=== PATIENT | female | born 1995 | race Caucasian/White ===

== ENCOUNTER 2022-03-30 11:15 | Outpatient (RCR) | payer MEDICAID, SELFPAY ==
[2022-03-23 10:35] VITALS: BP 100/61; PULSE 74; RESP 16; TEMP 36.4; BMI 25.0
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
[2022-03-30 11:54] VITALS: BP 128/73; PULSE 75; TEMP 36.2; BMI 25.0
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
== END 2022-04-12 23:59 | disposition home or self-care (01) ==
LOC: WC 11:15
PROVIDERS: PCP Family Medicine; Visit Provider Internal Medicine
DX: L89.323 Pressure ulcer of left buttock, stage 3 (principal); G82.50 Quadriplegia, unspecified; Z93.0 Tracheostomy status
CPT/HCPCS: 11042; 99203; G0463

== ENCOUNTER 2022-05-04 11:00 | Outpatient (RCR) | payer MEDICAID, SELFPAY ==
[2022-04-13 00:39] VITALS: BP 128/73; PULSE 75; RESP 16; TEMP 36.2; BMI 25.0
[2022-04-13 11:31] VITALS: BP 99/64; PULSE 79; RESP 18; TEMP 36.1; BMI 25.0
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
[2022-04-27 11:44] VITALS: BP 113/69; PULSE 115; RESP 18; BMI 25.0
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
--- NOTE | 2022-04-28 11:26 | WC ---
Unable to find home health agency to provide mcc that takes [employer] [employer]. Called [employer] and spoke to help desk representative for assistance. Transferred to [employer] managed care nurse Yulisa Farmer RN case manager. Yulisa's direct number is [phone]. Message left to return call to assist in finding a home health agency under patients insurance plan. Reference number for this call is #[id number]. Message left for patient's grandma Gayle to update on home health status. Grandnd is currently providing wound care but is in need of assistance.
--- NOTE | 2022-04-28 16:02 | WC ---
Received a message from Yulisa Farmer legal manager with [employer]. She provided 4 home health agencies that are in network. Unfortunately none of those agencies were able to provide services due to staffing issues or don't serve [facility]. Spoke with [facility]. They do take patient's insurance and service [facility]. They aren't able to start home care services until Sunday05/02/22. Spoke with Dr. Garland concerning vac change. Stated ok for home health to start on and patient's family can leave wound vac in place until home health starts on Sunday. If vac should loose seal, family is to remove vac and pac left buttock ulcer with Fibracol, cover with foam dressing, change daily until vac is placed back on Sunday. Spoke with Suraj South patient's . Informed of Home health start date and wound care instructions. Voiced understanding.
[2022-05-04 11:26] VITALS: BP 134/88; PULSE 81; RESP 18; TEMP 36.3; BMI 25.0
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
== END 2022-05-13 23:59 | disposition home or self-care (01) ==
LOC: WC 11:00
PROVIDERS: PCP Family Medicine; Visit Provider Internal Medicine
DX: L89.323 Pressure ulcer of left buttock, stage 3 (principal); G82.50 Quadriplegia, unspecified; Z93.0 Tracheostomy status; L89.311 Pressure ulcer of right buttock, stage 1
CPT/HCPCS: 97605; 11042; 87070; 87075; 87077; 87186; 87205

== ENCOUNTER 2024-12-11 11:00 | Outpatient (RCR) | payer MEDICARE, MEDICAID, SELFPAY ==
[2024-11-27 10:39] VITALS: BP 83/59; PULSE 121; RESP 16; TEMP 36.7; BMI 18.1
--- NOTE | 2024-11-27 13:01 | PCM.WC.HP ---
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 dietary intake, currently at a BMI of 18.1 and significant muscle loss. She states that she takes Premier life protein which has 30 g of protein in it. Increase dietary intake also discussed again. For now, Dakin's wet-to-dry to all areas and cover with superabsorbent dressing. Change daily to twice daily as needed. Continue offloading and repositioning. Has a low-loss air mattress and Roho cushion. Their questions were answered, and they were advised to let us know if they had any further questions or concerns. Follow-up in 1 week or sooner if needed. This note was generated with [employer] dictation software. It may contain incorrect words, spelling, and punctuation that were not noted in checking the note before signing.
--- NOTE | 2024-11-27 13:57 | WC ---
spoke with Phoebe from [facility] (p: [phone]) regard pt new supply orders. Phoebe will be ordering supplies for pt - will fax copy of orders to Phoebe (f: [phone]). Verbal order of dressings was given to Phoebe as well. pt was called and informed of this information.
--- NOTE | 2024-12-01 09:33 | WC ---
PHOTO 11/27/24 [facility]
--- NOTE | 2024-12-01 09:40 | WC ---
PHOTO 11/27/24 LEFT ISCHIUM
--- NOTE | 2024-12-01 09:42 | WC ---
PHOTO 11/27/24 RIGHT ISCHIUM
--- NOTE | 2024-12-01 09:44 | WC ---
[facility]
--- NOTE | 2024-12-01 09:46 | WC ---
PHOTO 11/27/24 RIGHT SCAPULA
[2024-12-04 11:22] VITALS: BP 100/62; PULSE 108; RESP 18; TEMP 36.2; BMI 18.1
--- NOTE | 2024-12-04 17:42 | PN.PCM_ITS ---
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 CODE(S): L89.154 - Pressure ulcer of sacral region, stage 4 (3) Decubitus ulcer of right upper back, stage 3: CODE(S): L89.113 - Pressure ulcer of right upper back, stage 3 (4) Decubitus ulcer of left upper back, stage 3: CODE(S): L89.123 - Pressure ulcer of left upper back, stage 3 (5) Quadriplegia, post-traumatic: CODE(S): G82.50 - Quadriplegia, unspecified; S14.109S - Unspecified injury at unspecified level of cervical spinal cord, sequela (6) Low body mass index (BMI): (7) Stage III pressure ulcer of left buttock: CODE(S): L89.323 - Pressure ulcer of left buttock, stage 3 (8) Stage IV pressure ulcer of right buttock: CODE(S): L89.314 - Pressure ulcer of right buttock, stage 4 PLAN: Plan Debridement done as documented above, procedure was well-tolerated. Some worsening noted to the shoulder area. More exposed bone noted on the right buttock/ischium and sacrum. Overall, no significant drainage or foul smell ap preciated. Concerns with dressing supplies as discussed above. Cultures reviewed and significant/multiple organisms grown. Will start on Augmentin and clindamycin based on sensitivity. Recommend taking clindamycin with probiotics. Now has her supplies and can consistently apply dressings as recommended. Hopefully with these, there is some improvement next week. Yet to get labs and imaging but plans to today. Has significant risk factors for delayed wound healing and worsening including chronicity, debility, poor nutritional status and plegia/pressure. For now, continue Dakin's to all areas of ulcerations daily to twice daily depending on soilage/drainage. Advised to pay particular attention to the upper back/shoulder area due to recurrent pressure. Pillow support to this area discussed. Concerns about air mattress, they were also advised to reach out to their supply company to address possible malfunction. Optimize protein intake and continued offloading discussed. We had discussed hyperbaric oxygen therapy last week which is something that she is considering. Follow-up in a week or sooner if needed. Call with any concerns. This note was generated with [employer] software. It may contain incorrect words, spelling, and punctuation that were not noted in checking the note before signing.
--- NOTE | 2024-12-08 16:00 | RAD_ITS ---
PROCEDURE: PELVIS 1 OR 2 VIEWS 12/08/2024 REASON FOR EXAM: WOUND TECHNIQUE: PELVIS 1 OR 2 VIEWS COMPARISON: No FINDINGS: Suprapubic catheter. Intact pelvic ring. However, there is lytic/erosive destruction of each ischial tuberosity, possibly secondary to chronic osteomyelitis. Correlate for ischial decubitus ulcerations. Large stool, possible constipation. RAD/Pelvis 1 or 2 Views IMPRESSION: Bilateral lytic/erosive changes in each ischial tuberosity, possibly secondary to longstanding osteomyelitis, secondary to decubitus ulcerations. Advise correlation. Reading Location: [place] [id number]
[2024-12-09 12:35] LABS: Hematocrit 28.8 % (37-47); Hemoglobin 8.5 g/dL (12.0-15.0); Immature Granulocytes Count 0.050 X10^3/uL (0.0-0.0); Mean Corp Hgb Conc 29.5 g/dL (32-36); Mean Corpuscular Volume 86.7 fL (81-99); Mean Platelet Vol. 9.3 fl (6.2-12.0); NRBC Flagged by Analyzer 0 % (0-5); Platelet Count 641 K/mm3 (150-450); RBC Distribution Width CV 13.3 % (11.6-14.6); RBC Distribution Width SD 42.2 fl (35.1-43.9); Red Blood Count 3.32 M/mm3 (4.2-5.4); White Blood Count 10.6 K/mm3 (4.4-11.0)
[2024-12-09 13:03] LABS: AST(SGOT) 19 U/L (<=31); Alanine Aminotransfer ALT/SGPT 11 U/L (<=34); Albumin, Serum 3.4 g/dL (3.5-5.0); Alkaline Phosphatase 83 U/L (35-104); Anion Gap 11 (5-15); BUN 9 mg/dL (4-19); BUN/Creat Ratio 32.1 RATIO (10-20); CRP 45.40 mg/L (0.0-3.0); Calcium,Total 9.4 mg/dL (7.6-11.0); Carbon Dioxide 26.9 mmol/L (21.0-32.0); Chloride 97 mmol/L (98-108); Estimated Creatinine Clearance 257.25 ml/min (50-250); Globulin 3.3 g/dL (2.2-4.2); Glucose 91 mg/dL (70-99); Potassium 4.6 mmol/L (3.3-5.1)
[2024-12-10 04:07] LABS: Prealbumin 9 mg/dL (14-35)
[2024-12-11 11:31] VITALS: BP 107/74; PULSE 92; RESP 18; TEMP 36.6; BMI 18.1
--- NOTE | 2024-12-11 12:46 | PCM.WC.PN ---
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 -Primary Dressing Applied Optilok 5x5 1/2 Optilok 6.5x10 -Other Dressing dakins moist dakins gauze moistened gauze -Primary Dressing Covered/Secured with Secured with Dry Gauze Tape -Optilok 5x5 1/2 1 -Optilok 6.5x10 1 2-right ischium -Ulcer Cleansing Rinsed/ Irrigated with Saline -Primary Dressing Applied Optilok 5x5 1/2 -Other Dressing dakins moist gauze -Primary Dressing Covered/Secured with Secured with Tape -Optilok 5x5 1/2 3 -Wound Comment(s) sent 2 supers home for use during next change Pain Scale: 0-10 Numeric Is Patient Pain Free? No Yes WC - Visit Discharge Discharge Condition Stable Stable Ambulatory Status Wheelchair Wheelchair Transportation Private Auto Accompanied by insurance healthcare representative Medication Reconcilliation completed & No provided to patient/care provider Clinical Summary of Care Provided Yes Yes Facility Type Home Health Orders Sent Yes Additional Wound Wound debrided: Right shoulder Wound Grade/Stage: Stage III Type of Debridement: Excisional debridement Anesthesia Used: 4% Lidocaine Solution Depth: Down to and including healthy tissue and in the subcutaneous layer Percentage of wound debrided: 100 Instrument Used: 5mm curette Tissue Removed: Slough and devitalized tissue Severity: Fat Layer Exposed Amount of bleeding with debridement: Moderate Bleeding Controlled with: Pressure and Silver Nitrate Patient tolerated procedure: Patient tolerated procedure well Additional Wound Wound debrided: Sacral Wound Grade/Stage: Stage IV Type of Debridement: Excisional debridement Anesthesia Used: 4% Lidocaine Solution Depth: Down to and including healthy tissue and to bone Percentage of wound debrided: 100 Instrument Used: 7mm curette Tissue Removed: Devitalized tissue Severity: Fat Layer Exposed Amount of bleeding with debridement: Mild Bleeding Controlled with: Pressure Patient tolerated procedure: Patient tolerated procedure well Additional Wound Wound debrided: Left buttock Wound Grade/Stage: Stage IV Type of Debridement: Excisional debridement Anesthesia Used: 4% Lidocaine Solution Depth: Down to and including healthy tissue and to bone Percentage of wound debrided: 100 Instrument Used: 5mm curette Tissue Removed: Devitalized tissue Severity: Fat Layer Exposed Amount of bleeding with debridement: Mild Bleeding Controlled with: Pressure Patient tolerated procedure: Patient tolerated procedure well Additional Wound Wound debrided: Right Buttock Wound Grade/Stage: Stage IV Type of Debridement: Excisional debridement Anesthesia Used: 4% Lidocaine Solution Depth: Down to and including healthy tissue and to bone Percentage of wound debrided: 100 Instrument Used: 7mm curette Tissue Removed: Devitalized tissue Severity: Fat Layer Exposed Bleeding Controlled with: Pressure Patient tolerated procedure: Patient tolerated procedure well Assessment/Plan Assessment/Plan (1) Stage IV pressure ulcer of sacral region: CODE(S): L89.154 - Pressure ulcer of sacral region, stage 4 (2) Decubitus ulcer of right upper back, stage 3: CODE(S): L89.113 - Pressure ulcer of right upper back, stage 3 (3) Quadriplegia, post-traumatic: CODE(S): G82.50 - Quadriplegia, unspecified; S14.109S - Unspecified injury at unspecified level of cervical spinal cord, sequela (4) Low body mass index (BMI): (5) Stage III pressure ulcer of left buttock: CODE(S): L89.323 - Pressure ulcer of left buttock, stage 3 (6) Stage IV pressure ulcer of right buttock: CODE(S): L89.314 - Pressure ulcer of right buttock, stage 4 (7) Decubitus ulcer of left buttock, stage 4: CODE(S): L89.324 - Pressure ulcer of left buttock, stage 4 (8) Chronic osteomyelitis involving pelvic region and thigh: CODE(S): M86.659 - Other chronic osteomyelitis, unspecified thigh (9) Malnutrition: CODE(S): E46 - Unspecified protein-calorie malnutrition (10) Anemia: CODE(S): D64.9 - Anemia, unspecified PLAN: Plan Debridement done as documented above, procedure was well-tolerated. No acute concerns reported. The sacral and buttock areas with good granulation. Less areas of necrosis, no foul smell or drainage. Shoulder area still with no improvement/worsening since her last visit. As above, she states that she has ordered cushions which she used previously and these helped with pressure. Recent labs reviewed, prealbumin quite low. Anemic. Currently at a BMI of 18.1. X-ray also suggestive of chronic osteomyelitis. Very lengthy discussion had with patient about goals of care. Status post surgery in the past with subsequent breakdown. Currently on antibiotics per culture and sensitivity. She states that she is still having problems with supplies. Has significant risk factors for delayed wound healing and worsening including chronicity, debility, poor nutritional status and plegia/pressure. For now, continue Dakin's to all areas of ulcerations daily to twice daily depending on soilage/drainage. She is hopeful that with the cushion her shoulder area will have less pressure. If at next visit, there is no significant improvement will switch dressing to bilateral shoulder area. Continue Dakin's for now due to problems with supplies. Due to chronic osteomyelitis, she would benefit from hyperbaric oxygen therapy and she is open to this. Optimized dietary intake very strongly recommended. Iron studies have been ordered, if low despite taking oral iron, she would benefit from iron infusion. Will refer to Infectious disease as well to guide management of chronic osteomyelitis. Follow-up in 2 weeks however, given strongly advised to schedule an appointment next week if they note any concern. Patient and caregiver voiced understanding. This note was generated with [employer] dictation software. It may contain incorrect words, spelling, and punctuation that were not noted in checking the note before signing.
--- NOTE | 2024-12-11 14:34 | WC ---
Home Health: [facility] [id number] [facility] [address] [place] [address] P) [phone], CHELSEA Sandhu P)[phone], F) [phone] DME Company: [employer]: , Order/note
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
--- NOTE | 2024-12-12 09:33 | WC ---
PHOTO-LEFT SCAPULA 12/11/24
--- NOTE | 2024-12-12 09:34 | WC ---
PHOTO-RIGHT SCAPULA 12/11/24
--- NOTE | 2024-12-12 09:35 | WC ---
PHOTO-SACRUM 12/11/24
--- NOTE | 2024-12-12 09:35 | WC ---
PHOTO-LEFT ISCHIUM 12/11/24
--- NOTE | 2024-12-12 09:36 | WC ---
PHOTO-RIGHT ISCHIUM 12/11/24
== END 2024-12-11 23:59 | disposition home or self-care (01) ==
LOC: WC 11:00
PROVIDERS: PCP Family Medicine; Referring Provider Family Medicine; Visit Provider Internal Medicine
DX: L89.154 Pressure ulcer of sacral region, stage 4 (principal); L89.324 Pressure ulcer of left buttock, stage 4; L89.314 Pressure ulcer of right buttock, stage 4; G82.50 Quadriplegia, unspecified; L89.113 Pressure ulcer of right upper back, stage 3; L89.123 Pressure ulcer of left upper back, stage 3; L89.313 Pressure ulcer of right buttock, stage 3; L89.323 Pressure ulcer of left buttock, stage 3; M86.659 Other chronic osteomyelitis, unspecified thigh; D64.9 Anemia, unspecified; B95.62 Methicillin resistant Staphylococcus aureus infection as the cause of diseases classified elsewhere; E46 Unspecified protein-calorie malnutrition; Z68.1 Body mass index [BMI] 19.9 or less, adult
CPT/HCPCS: 11042; 11044; 11045; 11047; 36415; 72170; 80053; 84134; 85025; 85652; 86140; 87070; 87075; 87077; 87186; 87205; 99213; G0463

== ENCOUNTER → 2024-12-31 | Outpatient (CLI) | payer MEDICARE, MEDICAID, SELFPAY ==
--- NOTE | 2024-12-31 12:42 | EKG12_ITS ---
Test Reason : HBO EVAL Blood Pressure : */* mmHG Vent. Rate : 99 BPM Atrial Rate : 99 BPM P-R Int : 118 ms QRS Dur : 76 ms QT Int : 348 ms P-R-T Axes : 47 25 53 degrees QTcB Int : 446 ms Normal sinus rhythm Normal ECG Confirmed by JOHNNY SANCHEZ, FRANCISCO ([id number]), script editor SANJEEV FRIEND ([id number]) on 01/01/2025 6:30:59 AM Referred By: Brea Garland Confirmed By: FRANCISCO TURNER MD
--- NOTE | 2024-12-31 13:00 | RAD_ITS ---
PROCEDURE: CHEST PA AND LATERAL 12/31/2024 REASON FOR EXAM: HBO EVALUATION TECHNIQUE: Three-view CHEST PA AND LATERAL COMPARISON: None available RAD/Chest PA and Lateral IMPRESSION: Bilateral breast prostheses are seen, overlying the chest. Partially visualized prior cervical surgery is seen. Lungs appear clear throughout. No pleural effusion or pneumothorax is noted. The cardiomediastinal silhouette is within the normal range. Gentle dextroscoliosis is noted. Mild thoracic spine degenerative changes are noted. Right upper rib/thoracic p ostsurgical changes are also noted. No acute osseous changes seen. Reading Location: [place] [id number]
== END | disposition home or self-care (01) ==
PROVIDERS: PCP Family Medicine; Referring Provider Internal Medicine; Visit Provider Internal Medicine
DX: M86.659 Other chronic osteomyelitis, unspecified thigh (principal)
CPT/HCPCS: 71046; 93005

== ENCOUNTER 2025-01-08 13:00 | Outpatient (RCR) | payer MEDICARE, MEDICAID, SELFPAY ==
[2024-12-25 11:11] VITALS: BP 81/52; PULSE 75; RESP 18; TEMP 36.3
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
--- NOTE | 2024-12-26 09:06 | WC ---
PHOTO-LEFT SHOULDER 12/25/24
--- NOTE | 2024-12-26 09:15 | WC ---
PHOTO-SACRUM 12/25/24
--- NOTE | 2024-12-26 09:17 | WC ---
PHOTO-RIGHT ISCHIUM 12/25/24
--- NOTE | 2024-12-26 09:17 | WC ---
PHOTO-LEFT ISCHIUM 12/25/24
[2025-01-08 13:13] VITALS: BP 94/68; PULSE 94; RESP 18; TEMP 36.2
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
--- NOTE | 2025-01-09 08:50 | WC ---
PHOTO-RIGHT SCAPULA/LEFT SCAPULA 01/08/25
--- NOTE | 2025-01-09 08:52 | WC ---
PHOTO-LEFT ISCHIUM/RIGHT ISCHIUM/SACRUM 01/08/25
== END 2025-01-11 23:59 | disposition home or self-care (01) ==
LOC: WC 13:00
PROVIDERS: PCP Family Medicine; Referring Provider Family Medicine; Visit Provider Physician Assistant
DX: L89.154 Pressure ulcer of sacral region, stage 4 (principal); L89.314 Pressure ulcer of right buttock, stage 4; L89.324 Pressure ulcer of left buttock, stage 4; L89.124 Pressure ulcer of left upper back, stage 4; G82.50 Quadriplegia, unspecified; L89.113 Pressure ulcer of right upper back, stage 3; M86.659 Other chronic osteomyelitis, unspecified thigh; E46 Unspecified protein-calorie malnutrition; D64.9 Anemia, unspecified; Z68.1 Body mass index [BMI] 19.9 or less, adult; Z79.82 Long term (current) use of aspirin; Z79.899 Other long term (current) drug therapy; S14.109S Unspecified injury at unspecified level of cervical spinal cord, sequela; V99.XXXS Unspecified transport accident, sequela
CPT/HCPCS: 11042; 11043; 11044; 11046; 11047; 87070; 87075; 87077; 87205

== ENCOUNTER 2025-01-22 13:12 | Outpatient (RCR) | payer MEDICARE, MEDICAID, SELFPAY ==
[2025-01-22 13:42] VITALS: BP 86/49; PULSE 111; RESP 16; TEMP 36.3
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
== END 2025-02-10 23:59 | disposition home or self-care (01) ==
LOC: WC 13:12
PROVIDERS: PCP Family Medicine; Referring Provider Family Medicine; Visit Provider Physician Assistant
DX: L89.154 Pressure ulcer of sacral region, stage 4 (principal); L89.314 Pressure ulcer of right buttock, stage 4; L89.324 Pressure ulcer of left buttock, stage 4; L89.124 Pressure ulcer of left upper back, stage 4; G82.50 Quadriplegia, unspecified; L89.113 Pressure ulcer of right upper back, stage 3; M86.659 Other chronic osteomyelitis, unspecified thigh; D64.9 Anemia, unspecified
CPT/HCPCS: 11042; 11043; 11044; 11046; 11047

== ENCOUNTER 2025-03-12 13:30 | Outpatient (RCR) | payer MEDICARE, MEDICAID, SELFPAY ==
[2025-02-12 13:46] VITALS: BP 112/78; PULSE 96; RESP 18; TEMP 36.3
--- NOTE | 2025-02-12 18:04 | PCM.WC.PN ---
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 Percentage of wound debrided: 100 Instrument Used: 5mm curette Tissue Removed: Slough and devitalized tissue Severity: Necrosis of Muscle Amount of bleeding with debridement: Mild Bleeding Controlled with: Pressure Patient tolerated procedure: Patient tolerated procedure well Additional Wound Wound debrided: Sacrum Wound Grade/Stage: stage IV Type of Debridement: Excisional debridement Anesthesia Used: 5% Lidocaine Gel Depth: Down to and including healthy tissue and to bone Percentage of wound debrided: 100 Instrument Used: 7mm curette Tissue Removed: Slough and devitalized tissue Severity: Necrosis of Bone Amount of bleeding with debridement: Mild Bleeding Controlled with: Pressure Patient tolerated procedure: Patient tolerated procedure well Additional Wound Wound debrided: Left buttock/ischium Wound Grade/Stage: Stage IV Type of Debridement: Excisional debridement Anesthesia Used: 5% Lidocaine Gel Depth: Down to and including healthy tissue and to bone Percentage of wound debrided: 100 Instrument Used: 7mm curette Tissue Removed: Slough and devitalized tissue Severity: Necrosis of Bone Amount of bleeding with debridement: Mild Bleeding Controlled with: Pressure Patient tolerated procedure: Patient tolerated procedure well Additional Wound Wound debrided: Right buttock/ischium Wound Grade/Stage: Stage IV Type of Debridement: Excisional debridement Anesthesia Used: 5% Lidocaine Gel Depth: Down to and including healthy tissue and to bone Percentage of wound debrided: 100 Instrument Used: 7mm curette Tissue Removed: Slough and devitalized tissue Severity: Necrosis of Bone Amount of bleeding with debridement: Mild Bleeding Controlled with: Pressure Patient tolerated procedure: Patient tolerated procedure well Additional Wound Wound debrided: Right mid-back/rib Laterality: Right Wound Grade/Stage: subcutaneous Type of Debridement: Excisional debridement Anesthesia Used: 5% Lidocaine Gel Depth: Down to and including healthy tissue and in the subcutaneous layer Percentage of wound debrided: 100 Instrument Used: 5mm curette Tissue Removed: slough, devitalized tissue Severity: Fat Layer Exposed Amount of bleeding with debridement: Mild Bleeding Controlled with: Pressure Patient tolerated procedure: Patient tolerated procedure well Additional Wound Wound debrided: Left mid back/posterior rib Laterality: Left Wound Grade/Stage: stage III Type of Debridement: Excisional debridement Anesthesia Used: 5% Lidocaine Gel Depth: Down to and including healthy tissue and in the subcutaneous layer Percentage of wound debrided: 100 Instrument Used: 5mm curette Tissue Removed: slough Severity: Fat Layer Exposed Amount of bleeding with debridement: Mild Bleeding Controlled with: Pressure Patient tolerated procedure: Patient tolerated procedure well Additional Wound Wound debrided: left elbow Laterality: Left Wound Grade/Stage: stage III Type of Debridement: Excisional debridement Anesthesia Used: 5% Lidocaine Gel Depth: in the subcutaneous layer Percentage of wound debrided: 100 Instrument Used: 3mm curette Tissue Removed: slough Severity: Fat Layer Exposed Bleeding Controlled with: Compression and gauze Patient tolerated procedure: Patient tolerated procedure well Additional Wound Wound debrided: L posterior knee Laterality: Left Wound Grade/Stage: stage IV Type of Debridement: Excisional debridement Anesthesia Used: 5% Lidocaine Gel Depth: to muscle Percentage of wound debrided: 100 Instrument Used: 5mm curette Tissue Removed: slough, devitalized tissue Severity: Necrosis of Muscle Amount of bleeding with debridement: Mild Bleeding Controlled with: Compression and gauze Patient tolerated procedure: Patient tolerated procedure well Assessment/Plan Assessment/Plan (1) Stage IV pressure ulcer of sacral region: CODE(S): L89.154 - Pressure ulcer of sacral region, stage 4 (2) Decubitus ulcer of right upper back, stage 3: CODE(S): L89.113 - Pressure ulcer of right upper back, stage 3 (3) Quadriplegia, post-traumatic: CODE(S): G82.50 - Quadriplegia, unspecified; S14.109S - Unspecified injury at unspecified level of cervical spinal cord, sequela (4) Low body mass index (BMI): (5) Stage IV pressure ulcer of right buttock: CODE(S): L89.314 - Pressure ulcer of right buttock, stage 4 (6) Decubitus ulcer of left buttock, stage 4: CODE(S): L89.324 - Pressure ulcer of left buttock, stage 4 (7) Chronic osteomyelitis involving pelvic region and thigh: CODE(S): M86.659 - Other chronic osteomyelitis, unspecified thigh (8) Malnutrition: CODE(S): E46 - Unspecified protein-calorie malnutrition (9) Anemia: CODE(S): D64.9 - Anemia, unspecified (10) Decubitus ulcer of upper back, stage 4: CODE(S): L89.104 - Pressure ulcer of unspecified part of back, stage 4 QUALIFIERS: Laterality: left Qualified Code(s): L89.124 - Pressure ulcer of left upper back, stage 4 PLAN: pressure ulcer of left upper back/shoulder, stage IV (11) Decubitus ulcer of back, stage 2: CODE(S): L89.102 - Pressure ulcer of unspecified part of back, stage 2 PLAN: pressure ulcer of right mid back, stage II (12) Decubitus ulcer of back, stage 3: CODE(S): L89.103 - Pressure ulcer of unspecified part of back, stage 3 (13) Pressure ulcer of left elbow, stage 3: CODE(S): L89.023 - Pressure ulcer of left elbow, stage 3 (14) Pressure ulcer of left knee: CODE(S): L89.899 - Pressure ulcer of other site, unspecified stage PLAN: Plan She tolerated debridement well. Sacral/buttock ulcerations seem generally stable. Upper back/shoulder ulcerations are improved. Unfortunately, several new ulcerations as noted above. She reports no signs/symptoms of acute infection. She is advised to continue to try to reschedule ID appointment. Plan is to schedule for HBO, possibly to start next week. Given potential for upcoming HBO, dressings will be adjusted per HBO requirements. Dakins is not HBO safe. For wound care of the upper back/shoulder, mid-back, elbow, and knee ulcerations: (1) Cleanse with antibacterial soap and water, pat dry (2) Apply Aquacel Extra (3) Change once daily or more often as needed to manage drainage. For wound care of the sacral and buttock ulcerations: (1) Cleanse with antibacterial soap and water (2) Pack with Aquacel Silver (3) Cover with foam border dressings or ABD pads (4) Change at least twice daily or more often as needed to manage drainage and keep clean. Will plan for return to see me in 2 weeks, HBO as scheduled in the interim.
--- NOTE | 2025-02-16 10:25 | WC ---
PHOTO-SACRUM 02/12/25
--- NOTE | 2025-02-16 10:26 | WC ---
Spoke with pt this morning and answered her questions on HBO. She stated her staffing is not good right now and she doesn't feel as if she could be consistent with this treatment at this time but plans to start it as soon as she is sure she will be able to have her caregivers bring her. I told patient to call in when she is ready and we will get the process started again.
--- NOTE | 2025-02-16 10:29 | WC ---
PHOTO-LEFT ISCHIUM 02/12/25
--- NOTE | 2025-02-16 10:30 | WC ---
PHOTO- LEFT ELBOW 02/12/25
--- NOTE | 2025-02-16 10:33 | WC ---
PHOTO-POST RIB 02/12/25
--- NOTE | 2025-02-16 10:34 | WC ---
PHOTO-LEFT SCAPULA 02/12/25
--- NOTE | 2025-02-16 10:37 | WC ---
PHOTO-RIGHT SCAPULA 02/12/25
[2025-03-12 13:35] VITALS: BP 90/52; PULSE 101; RESP 18; TEMP 36.1
[2025-03-12 13:59] VITALS: BP 90/52; PULSE 101; RESP 18; TEMP 36.1
--- NOTE | 2025-03-12 19:44 | PCM.WC.PN ---
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 Muscle/Fascia, ea addt'l 1 20sq cm or part thereof #4 left scapula -Time 14:33 15:00 -Correct Patient Yes Yes -Correct Side, Site, Position Yes Yes -Correct Procedure Yes Yes -Procedure Performed Yes Yes -Type of Procedure Debridement Debridement -Clinical Debridement Epidermis / Subcutaneous Dermis -Tissue Removed Epidermis Subcutaneous -Post Debridement (cm) - Length 2.5 2.0 -Post Debridement (cm) - Width 3.4 2.5 -Post Debridement (cm) - Depth 0.5 0.5 -Total Square (Post) (cm) 8.50 5.00 -Area of Debridement (cm) - Length 2.5 2.0 -Area of Debridement (cm) - Width 3.4 2.5 -Total Square (Area) (cm) 8.50 5.00 -Tunneling No No -Undermining/Tunneling No No -Circular Undermining No No -Wound/Ulcer Outcome Not Healed Not Healed -Ulcer Cleansing Rinsed/ Rinsed/ Irrigated with Irrigated with Saline Saline -Foul Odor after Cleansing No No -Bioengineered Tissue No No -Bleeding Controlled with Pressure Pressure -Treatment Response Procedure Procedure Tolerated Well Tolerated Well -Offloading No -Debridement - Open, 1st 20sq cm Yes -Debridement - Subq, 1st 20sq cm No 3-sacrum -Time 14:54 14:42 -Correct Patient Yes Yes -Correct Side, Site, Position Yes Yes -Correct Procedure Yes Yes -Procedure Performed Yes Yes -Type of Procedure Debridement Debridement -Clinical Debridement Bone Bone -Tissue Removed Non-viable Non-viable tissue tissue -Post Debridement (cm) - Length 7.3 5 -Post Debridement (cm) - Width 8.7 8.8 -Post Debridement (cm) - Depth 0.7 1.0 -Total Square (Post) (cm) 63.51 44.0 -Area of Debridement (cm) - Length 7.3 5 -Area of Debridement (cm) - Width 8.7 8.8 -Total Square (Area) (cm) 63.51 44.0 -Tunneling Yes Yes -Tunneling Position (O'clock) 10 8 -Tunneling Distance (cm) 2.5 1.5 -Tunneling Position #2 (O'clock) 1 -Tunneling Distance #2 (cm) 0.5 -Undermining/Tunneling No No -Circular Undermining No -Wound/Ulcer Outcome Not Healed Not Healed -Ulcer Cleansing Rinsed/ Rinsed/ Irrigated with Irrigated with Saline Saline -Foul Odor after Cleansing No No -Bioengineered Tissue No No -Bleeding Controlled with Pressure Pressure -Treatment Response Procedure Procedure Tolerated Well Tolerated Well -Offloading No No -Debridement - Bone, 1st 20sq cm Yes No -Debridement, Bone, ea addt'l 20sq cm 3 or part thereof 1-left ischium -Time 14:57 14:48 -Correct Patient Yes Yes -Correct Side, Site, Position Yes Yes -Correct Procedure Yes Yes -Procedure Performed Yes Yes -Type of Procedure Debridement Debridement -Clinical Debridement Muscle / Fascia Muscle / Fascia -Tissue Removed Muscle Muscle -Post Debridement (cm) - Length 6.0 6.4 -Post Debridement (cm) - Width 3.0 5.5 -Post Debridement (cm) - Depth 1.5 1.0 -Total Square (Post) (cm) 18.00 35.20 -Area of Debridement (cm) - Length 6.0 6.4 -Area of Debridement (cm) - Width 3.0 5.5 -Total Square (Area) (cm) 18.00 35.20 -Tunneling No No -Undermining/Tunneling Yes Yes -Undermining/Tunneling Starts (O'clock 10 9 ) -Undermining/Tunneling Ends (O'clock) 12 12 -Maximum Distance (cm) 3.1 2 -Circular Undermining No No -Wound/Ulcer Outcome Not Healed Not Healed -Ulcer Cleansing Rinsed/ Rinsed/ Irrigated with Irrigated with Saline Saline -Foul Odor after Cleansing No No -Bioengineered Tissue No No -Bleeding Controlled with Pressure Pressure -Treatment Response Procedure Procedure Tolerated Well Tolerated Well -Offloading No No -Debridement - Muscle / Fascia, 1st No No 20sq cm 2-right ischium -Time 15:01 14:43 -Correct Patient Yes Yes -Correct Side, Site, Position Yes Yes -Correct Procedure Yes Yes -Procedure Performed Yes Yes -Type of Procedure Debridement Debridement -Clinical Debridement Muscle / Fascia Bone -Tissue Removed Muscle Non-viable tissue -Post Debridement (cm) - Length 12.0 7.8 -Post Debridement (cm) - Width 7.0 8.0 -Post Debridement (cm) - Depth 2.5 2.0 -Total Square (Post) (cm) 84.00 62.40 -Area of Debridement (cm) - Length 12.0 7.8 -Area of Debridement (cm) - Width 7.0 8.0 -Total Square (Area) (cm) 84.00 62.40 -Tunneling Yes Yes -Tunneling Position (O'clock) 12 12 -Tunneling Distance (cm) 2.7 2.2 -Undermining/Tunneling No No -Circular Undermining No No -Wound/Ulcer Outcome Not Healed Not Healed -Ulcer Cleansing Rinsed/ Rinsed/ Irrigated with Irrigated with Saline Saline -Foul Odor after Cleansing No No -Bioengineered Tissue No No -Bleeding Controlled with Pressure Pressure -Treatment Response Procedure Procedure Tolerated Well Tolerated Well -Offloading No No -Assistive Device(s) Wheelchair -Pressure Reduction Mattress overlay -Debridement - Muscle / Fascia, 1st Yes 20sq cm -Debridement, Muscle/Fascia, ea addt'l 5 20sq cm or part thereof -Debridement - Bone, 1st 20sq cm Yes -Debridement, Bone, ea addt'l 20sq cm 5 or part thereof Pain Scale: 0-10 Numeric Is Patient Pain Free? Yes Yes WC - Nurse 3 - General Ulcer D/C NN Start: 02/12/25 13:45 Freq: Status: Active Protocol: Activity Type Activity Date Activity User E-sign Co-sign Detail Recorded Client Recorded Date Recorded By Document 02/12/25 15:26 DS [id number] 02/12/25 15:39 DS Document 03/12/25 15:20 ML [id number] 03/12/25 15:27 ML 02/12/25 03/12/25 15:26 15:20 [facility] Nurse 3 #12 Right Elbow -Primary Dressing Applied Aquacel AG 4x4, Silicone Border Foam 6x6 -Other Dressing dakins wash -Aquacel AG 4x4 4 -Silicone Border Foam 6x6 4 *11 Mid back Left -Primary Dressing Applied Aquacel Extra, Aquacel Extra, Silicone Border Silicone Border Foam 4x4 Foam 6x6 -Other Dressing dakins -Aquacel Extra 1 0 -Silicone Border Foam 4x4 1 -Silicone Border Foam 6x6 0 10. L post knee -Primary Dressing Applied Aquacel Extra, Silicone Border Silicone Border Foam 6x6 Foam 4x4 -Other Dressing dakins -Aquacel Extra 0 -Aquacel AG 4x4 0 -Silicone Border Foam 4x4 1 -Silicone Border Foam 6x6 0 7. L elbow -Primary Dressing Applied Aquacel Extra, Aquacel AG 4x4 Silicone Border Foam 4x4 -Primary Dressing Covered/Secured with Dry Gauze, Secured with Tape -Aquacel Extra 0 -Aquacel AG 4x4 0 -Silicone Border Foam 4x4 1 *#6L mid back Right -Primary Dressing Applied Aquacel Extra, Aquacel AG 4x4, Silicone Border Silicone Border Foam 4x4 Foam 6x6 -Other Dressing dakins -Aquacel Extra 0 -Aquacel AG 4x4 0 -Silicone Border Foam 4x4 1 -Silicone Border Foam 6x6 0 5-right scapula -Primary Dressing Applied Aquacel Extra, Aquacel AG 4x4, Silicone Border Silicone Border Foam 4x4 Foam 6x6 -Other Dressing dakins -Aquacel Extra 0 -Aquacel AG 4x4 0 -Silicone Border Foam 4x4 1 -Silicone Border Foam 6x6 0 #4 left scapula -Primary Dressing Applied Aquacel Extra, Aquacel Extra, Silicone Border Silicone Border Foam 4x4 Foam 6x6 -Other Dressing dakins -Aquacel Extra 0 0 -Silicone Border Foam 4x4 1 -Silicone Border Foam 6x6 0 3-sacrum -Primary Dressing Applied Aquacel AG 4x4, Aquacel AG 4x4, Silicone Border Silicone Border Foam 6x6 Foam 6x6 -Other Dressing dakins -Aquacel AG 4x4 2 0 -Silicone Border Foam 6x6 1 0 1-left ischium -Primary Dressing Applied Aquacel AG 4x4, Aquacel Extra, Silicone Border Silicone Border Foam 6x6 Foam 6x6 -Other Dressing dakins -Aquacel Extra 0 -Aquacel AG 4x4 2 -Silicone Border Foam 6x6 1 1 2-right ischium -Primary Dressing Applied Aquacel Extra, Silicone Border Foam 6x6 -Other Dressing dakins -Aquacel Extra 0 -Silicone Border Foam 6x6 1 Pain Scale: 0-10 Numeric Is Patient Pain Free? Yes Yes WC - Visit Discharge Discharge Condition Stable Ambulatory Status Wheelchair Transportation Private Auto Additional Wound Wound debrided: Left upper back/scapula Laterality: Left Wound Grade/Stage: Stage IV Type of Debridement: Excisional debridement Anesthesia Used: 5% Lidocaine Gel Depth: Down to and including healthy tissue, to muscle and to bone Percentage of wound debrided: 100 Instrument Used: 5mm curette Tissue Removed: Slough and devitalized tissue Severity: Necrosis of Muscle Amount of bleeding with debridement: Mild Bleeding Controlled with: Pressure Patient tolerated procedure: Patient tolerated procedure well Additional Wound Wound debrided: Sacrum Wound Grade/Stage: stage IV Type of Debridement: Excisional debridement Anesthesia Used: 5% Lidocaine Gel Depth: Down to and including healthy tissue and to bone Percentage of wound debrided: 100 Instrument Used: 7mm curette Tissue Removed: Slough and devitalized tissue Severity: Necrosis of Bone Amount of bleeding with debridement: Mild Bleeding Controlled with: Pressure Patient tolerated procedure: Patient tolerated procedure well Additional Wound Wound debrided: Left buttock/ischium Wound Grade/Stage: Stage IV Type of Debridement: Excisional debridement Anesthesia Used: 5% Lidocaine Gel Depth: Down to and including healthy tissue and to bone Percentage of wound debrided: 100 Instrument Used: 7mm curette Tissue Removed: Slough and devitalized tissue Severity: Necrosis of Bone Amount of bleeding with debridement: Mild Bleeding Controlled with: Pressure Patient tolerated procedure: Patient tolerated procedure well Additional Wound Wound debrided: Right buttock/ischium Wound Grade/Stage: Stage IV Type of Debridement: Excisional debridement Anesthesia Used: 5% Lidocaine Gel Depth: Down to and including healthy tissue and to bone Percentage of wound debrided: 100 Instrument Used: 7mm curette Tissue Removed: Slough and devitalized tissue Severity: Necrosis of Bone Amount of bleeding with debridement: Mild Bleeding Controlled with: Pressure Patient tolerated procedure: Patient tolerated procedure well Additional Wound Wound debrided: Right mid-back/rib Laterality: Right Wound Grade/Stage: subcutaneous Type of Debridement: Excisional debridement Anesthesia Used: 5% Lidocaine Gel Depth: Down to and including healthy tissue and in the subcutaneous layer Percentage of wound debrided: 100 Instrument Used: 5mm curette Tissue Removed: slough, devitalized tissue Severity: Fat Layer Exposed Amount of bleeding with debridement: Mild Bleeding Controlled with: Pressure Patient tolerated procedure: Patient tolerated procedure well Additional Wound Wound debrided: Left mid back/posterior rib Laterality: Left Wound Grade/Stage: stage III Type of Debridement: Excisional debridement Anesthesia Used: 5% Lidocaine Gel Depth: Down to and including healthy tissue and in the subcutaneous layer Percentage of wound debrided: 100 Instrument Used: 5mm curette Tissue Removed: slough Severity: Fat Layer Exposed Amount of bleeding with debridement: Mild Bleeding Controlled with: Pressure Patient tolerated procedure: Patient tolerated procedure well Additional Wound Wound debrided: left elbow Laterality: Left Wound Grade/Stage: stage III Type of Debridement: Excisional debridement Anesthesia Used: 5% Lidocaine Gel Depth: in the subcutaneous layer Percentage of wound debrided: 100 Instrument Used: 3mm curette Tissue Removed: slough Severity: Fat Layer Exposed Bleeding Controlled with: Compression and gauze Patient tolerated procedure: Patient tolerated procedure well Additional Wound Wound debrided: L posterior knee Laterality: Left Wound Grade/Stage: stage IV Type of Debridement: Excisional debridement Anesthesia Used: 5% Lidocaine Gel Depth: to muscle Percentage of wound debrided: 100 Instrument Used: 5mm curette Tissue Removed: slough, devitalized tissue Severity: Necrosis of Muscle Amount of bleeding with debridement: Mild Bleeding Controlled with: Compression and gauze Patient tolerated procedure: Patient tolerated procedure well Assessment/Plan Assessment/Plan (1) Stage IV pressure ulcer of sacral region: CODE(S): L89.154 - Pressure ulcer of sacral region, stage 4 (2) Decubitus ulcer of right upper back, stage 3: CODE(S): L89.113 - Pressure ulcer of right upper back, stage 3 (3) Quadriplegia, post-traumatic: CODE(S): G82.50 - Quadriplegia, unspecified; S14.109S - Unspecified injury at unspecified level of cervical spinal cord, sequela (4) Low body mass index (BMI): (5) Stage IV pressure ulcer of right buttock: CODE(S): L89.314 - Pressure ulcer of right buttock, stage 4 (6) Decubitus ulcer of left buttock, stage 4: CODE(S): L89.324 - Pressure ulcer of left buttock, stage 4 (7) Chronic osteomyelitis involving pelvic region and thigh: CODE(S): M86.659 - Other chronic osteomyelitis, unspecified thigh (8) Malnutrition: CODE(S): E46 - Unspecified protein-calorie malnutrition (9) Anemia: CODE(S): D64.9 - Anemia, unspecified (10) Decubitus ulcer of upper back, stage 4: CODE(S): L89.104 - Pressure ulcer of unspecified part of back, stage 4 QUALIFIERS: Laterality: left Qualified Code(s): L89.124 - Pressure ulcer of left upper back, stage 4 PLAN: pressure ulcer of left upper back/shoulder, stage IV (11) Decubitus ulcer of back, stage 2: CODE(S): L89.102 - Pressure ulcer of unspecified part of back, stage 2 PLAN: pressure ulcer of right mid back, stage II (12) Decubitus ulcer of back, stage 3: CODE(S): L89.103 - Pressure ulcer of unspecified part of back, stage 3 PLAN: pressure ulcer of left mid back, stage III (13) Pressure ulcer of left elbow, stage 3: CODE(S): L89.023 - Pressure ulcer of left elbow, stage 3 (14) Pressure ulcer of left knee: CODE(S): L89.899 - Pressure ulcer of other site, unspecified stage QUALIFIERS: Pressure injury stage: stage 3 Qualified Code(s): L89.893 - Pressure ulcer of other site, stage 3 PLAN: pressure ulcer of left knee/popliteal fossa stage III (15) Pressure ulcer of right elbow, stage 2: CODE(S): L89.012 - Pressure ulcer of right elbow, stage 2 PLAN: Plan She tolerated debridement well. Sacral/buttock ulcerations appear slightly improved; all other ulcerations appear stable. She has a new ulceration to the R elbow. She reports no signs/symptoms of acute infection. There was not sufficient room in the debridement panel to document her R elbow wound which is stage II to subcutaneous tissue; I debrided slough with 5 mm currette, mild bleeding controlled with pressure, she tolerated well. R elbow wound is 1.7 x 1.1 x 0.2 cm. She reports a family friend who is a nurse and does wound care has used topical flagyl (crushed tablets or the contents of a capsule) applied topically to wounds like hers with great success. She is very interested in trying this. I advised that I am unfamiliar with this type of treatment; I know of gel formulations for flagyl as used for rosacea but had not heard of crushing tables or using the contents of capsules. I have concern about the degree of systemic absorption and what the best dosing would be; I do not think this would be safe (due to systemic absorption) for all of her wounds at the same time but may be reasonable to try on 1 or 2 of her wounds. I asked that she give me time to look further into this and discuss with pharmacy and then proceed from there. She has still not been able to get an ID appointment with local group here. Will refer to a different ID group, will look in [place] as this may be a bit closer for her (she lives in [place]). She is interested in pursuing Dalvance infusions as she has seen on support groups for other paralyzed patients with pressure ulcers that this has led to great improvement. I am not familiar with this medication and feel it would be best managed/considered by ID. Moreover, we have been trying to get her into ID for recommendations for possible chronic osteomyelitis. We also discussed obtaining an improved offloading bed/mattress. Will try to obtain sand bed/air fluidized offloading bed. RNCHELSEA is going to look into which companies offer these beds and process for submitting to insurance. She continues to have issues with wound care supplies. Her [facility] is not supplying her wound care; she has told them to stop that completely so that we might be able to order directly instead. RNCHELSEA will try again to order wound care supplies (in the past unsuccessful as insurance will not cover our orders due to her [facility] company has been submitting for them but she reports the supplies have never made it to her). If this is unsuccessful, patient is willing to pay out of pocket from the company we typically use at this point as she is otherwise spending significant amounts trying to order things on [employer]. She is currently dealing with staffing issues with her caregivers; she does not have sufficient caregiver staffing right now to support HBO regimen so this is on hold. For wound care of the upper back/shoulder, mid-back, elbow, and knee ulcerations: (1) Cleanse with Dakins (2) Apply Aquacel Extra (3) Apply ABD/Gauze followed by Foam border dressing (4) Change once daily or more often as needed to manage drainage. For wound care of the sacral and buttock ulcerations: (1) Cleanse with Dakins (2) Pack with Aquacel Silver (3) Cover with foam border dressings or ABD pads (4) Change at least twice daily or more often as needed to manage drainage and keep clean. Will plan for return to see me in 2 weeks.
--- NOTE | 2025-03-13 07:51 | WC ---
PHOTO-R/L SCAPULA 03/12/25
--- NOTE | 2025-03-13 07:53 | WC ---
PHOTO-POST RIB B/L 03/12/25
--- NOTE | 2025-03-13 07:54 | WC ---
PHOTO-R/L ISCHIUM 03/12/25
--- NOTE | 2025-03-13 07:56 | WC ---
PHOTO-SACRUM 03/12/25
--- NOTE | 2025-03-13 07:57 | WC ---
PHOTO-R/L ISCHIUM 03/12/25
--- NOTE | 2025-03-13 07:58 | WC ---
PHOTO-ELBOW 03/12/25
--- NOTE | 2025-03-13 07:59 | WC ---
PHOTO-LEFT POST KNEE 03/12/25
== END 2025-03-13 23:59 | disposition home or self-care (01) ==
LOC: WC 13:30
PROVIDERS: PCP Family Medicine; Referring Provider Family Medicine; Visit Provider Physician Assistant
DX: L89.154 Pressure ulcer of sacral region, stage 4 (principal); L89.314 Pressure ulcer of right buttock, stage 4; L89.324 Pressure ulcer of left buttock, stage 4; L89.124 Pressure ulcer of left upper back, stage 4; G82.50 Quadriplegia, unspecified; L89.113 Pressure ulcer of right upper back, stage 3; L89.023 Pressure ulcer of left elbow, stage 3; L89.012 Pressure ulcer of right elbow, stage 2; M86.659 Other chronic osteomyelitis, unspecified thigh; E46 Unspecified protein-calorie malnutrition; D64.9 Anemia, unspecified; S14.109S Unspecified injury at unspecified level of cervical spinal cord, sequela
CPT/HCPCS: 11042; 11043; 11044; 11046; 11047; 97597

== ENCOUNTER → 2025-03-26 | Outpatient (CLI) | payer MEDICARE, MEDICAID, SELFPAY ==
--- NOTE | 2025-03-26 12:02 | US_ITS ---
PROCEDURE: KIDNEY AND BLADDER 03/26/2025 REASON FOR EXAM: URINARY RETENTION TECHNIQUE: Procedure Code: USKI Modality: US Procedure: KIDNEY AND BLADDER COMPARISON: None FINDINGS: Right kidney measures 10.0 x 3.9 x 3.8 cm. Cortical thickness measures 1 cm. Size, contour, and echogenicity are within normal limits. There are no stones, masses or hydronephrosis. Left kidney measures 10.4 x 4.8 x 4.5 cm. Cortical thickness measures 1 cm. Size, contour, and echogenicity are within normal limits. There are no stones, masses or hydronephrosis. Urinary bladder was not visualized due to patient having a catheter in place. DOPPLER: Color Doppler: Normal color flow doppler signal Spectral Doppler: Normal arterial inflow and venous outflow signal US/Kidney and Bladder IMPRESSION: Normal appearance to both kidneys. There is a Miles catheter within the bladder and therefore the bladder could no t be evaluated Reading Location: [id number]
== END | disposition home or self-care (01) ==
LOC: US 11:58
PROVIDERS: PCP Family Medicine; Referring Provider Urology; Visit Provider Urology
DX: R33.9 Retention of urine, unspecified (principal)
CPT/HCPCS: 76770